=== PATIENT | male | born 1940 | race Caucasian/White ===

== ENCOUNTER 2018-03-05 10:50 | Outpatient (CLI) | payer MEDICARE ==
[~2018-03-05 10:50] MED LIST: DISP SYRIN IM PRN; LEUPROLIDE ACETATE 22.5 MG IM PRN
[2018-03-05 11:01] VITALS: BP 115/79
== END 2018-03-05 11:16 | disposition home or self-care (01) ==
LOC: II 10:50 → 5TH 10:52 → II 11:16
PROVIDERS: ATTEND Hospitalist
PROC: 3E023GC Introduction of Other Therapeutic Substance into Muscle, Percutaneous Approach (ICD-10-PCS; principal; 2018-03-05)
DX: C61 Malignant neoplasm of prostate (principal)
CPT/HCPCS: 96402; J1950